=== PATIENT | male | born 1940 | race Caucasian/White ===

== ENCOUNTER 2021-03-25 19:18 | Observation (INO) | payer MEDICARE, OTHER ==
[2021-03-25] MEDS ORDERED: SODIUM CHLORIDE 0.9% 500 ML 500 ML IV STA (19:28)
[2021-03-25 19:36] LABS: Glucose,Whole Blood 72 mg/dL (75-99)
[2021-03-25 19:58] LABS: Basophils # (A) 0.1 k/uL (0-0.2); Basophils % (A) 1 %; Eosinophils # (A) 0.1 k/uL (0-0.7); Eosinophils % (A) 1 %; HCT 41.2 % (39.0-53.0); HGB 14.6 gm/dL (13.0-17.5); Lymphocytes # (A) 1.6 k/uL (1.0-4.8); Lymphocytes % (A) 16 %; MCH 33.1 pg (25.0-35.0); MCHC 35.3 g/dL (31.0-37.0); MCV 93.8 fL (80.0-100.0); Mean Platelet Volume 9.1; Monocytes # (A) 0.7 k/uL (0-1.0); Monocytes % (A) 7 %; Neutrophils # (A) 7.6 k/uL (1.3-7.7); Neutrophils % (A) 75 %; Platelet Count 163 k/uL (150-450); RBC 4.39 m/uL (4.30-5.90); RDW 13.2 % (11.5-15.5); WBC 10.1 k/uL (3.8-10.6)
[2021-03-25 20:14] LABS: Albumin 4.1 g/dL (3.5-5.0); Calcium 9.4 mg/dL (8.4-10.2); Magnesium 1.7 mg/dL (1.6-2.3); Potassium 3.6 mmol/L (3.5-5.1); Total Bilirubin 0.6 mg/dL (0.2-1.3)
[2021-03-25 20:18] LABS: Partial Thromboplastin Time 23.4 sec (22.0-30.0); Prothrombin Time 10.7 sec (9.0-12.0)
[2021-03-25] MEDS ORDERED: DEXTROSE 50% SYRINGE 50 ML IVP STA (20:31)
[2021-03-25 20:34] LABS: Glucose,Whole Blood 67 mg/dL (75-99)
--- NOTE | 2021-03-25 20:34 | ED ---
General Adult HPI - General Chief complaint: Altered Mental Status Stated complaint: AMS Source: patient, EMS Mode of arrival: EMS Limitations: no limitations - History of Present Illness Initial comments: 80-year-old male past history of coronary artery disease, diabetes, ulcerative colitis with colostomy presents emergency Department with reported altered mental status. EMS provided majority of the history. They state that the patient ate a small meal and then went into the bathroom to take his insulin. He did not come out of the bathroom as expected and therefore family went in to find him cool, pale and diaphoretic. They did check his glucose level and it was 71. Patient was fed a honeybun and EMS was called. They arrived to find the patient with a glucose of 160. He was much more awake and alert. Family is concerned that the patient took access of his insulin. Patient reports that he only took his scheduled 4 units. He also states that his glucose has fallen low previously. He denies any recent illnesses. States he felt well up until the event. Denies any recent medication changes. EMS transported the patient to the hospital and stated that he had multiple irregular rhythms noted on the EKG. Patient has arrived and placed on the monitoring specialist. He denies any chest pain or shortness of breath. No nausea or vomiting. Eating, drinking normally. No other alleviating, precipitating or modifying factors - Related Data Home Medications Medication Instructions Recorded Confirmed Aspirin EC [Ecotrin Low Dose] 81 mg PO DAILY 03/25/21 03/25/21 Folplex 2.2-25-0.5mg 1 tab PO DAILY 03/25/21 03/25/21 Insulin Aspart [NovoLOG Flexpen] 4 units SQ AC-BID 03/25/21 03/25/21 Insulin Glargine,Hum.rec.anlog 12 unit SQ DAILY 03/25/21 03/25/21 [Lantus Solostar Pen] Losartan Potassium 50 mg PO DAILY 03/25/21 03/25/21 Pantoprazole Sodium [Protonix] 20 mg PO DAILY 03/25/21 03/25/21 Allergies Allergy/AdvReac Type Severity Reaction Status Date / Time No Known Allergies Allergy Verified 03/25/21 20:16 Review of Systems ROS Statement: Those systems with pertinent positive or pertinent negative responses have been documented in the HPI. ROS Other: All systems not noted in ROS Statement are negative. Past Medical History Past Medical History: Coronary Artery Disease (CAD), Diabetes Mellitus, Hypertension, Memory Impairment, Myocardial Infarction (MS) History of Any Multi-Drug Resistant Organisms: None Reported Additional Past Surgical History / Comment(s): Colostomy, left knee amputation Past Psychological History: No Psychological Hx Reported Smoking Status: Former smoker Past Alcohol Use History: None Reported Past Drug Use History: None Reported General Exam Limitations: no limitations Course Vital Signs 03/25/21 03/25/21 19:28 20:20 Pulse Rate 61 61 Respiratory 16 18 Rate Blood Pressure 105/81 116/69 O2 Sat by Pulse 99 99 Oximetry EKG Findings - EKG Comments: EKG Findings:: EKG demonstrates sinus rhythm with first-degree block. Rate of 61. AK 222. QRS 158. QTC of 497. Right bundle branch block. No acute ST s egment elevations or depressions Medical Decision Making - Medical Decision Making Upon arrival the patient was placed into room 10. He is placed on continuous pulse ox and cardiac monitoring. Did obtain an Accu-Chek on the patient and it is noted be 72. He is given something to eat. Laboratory studies are conducted. Glucose is return at 30 on his CMP. Repeat Accu-Chek demonstrates that it has fallen to 67. Patient is given a half amp of dextrose and given additional food to eat. Remainder of his laboratory studies are reviewed and a chest x-rays performed. Due to patient's recurrent hypoglycemia did recommend admission to the hospital for which patient did agree to. Patient will remain on the monitoring specialist. Spoke with Isi from [facility] who agreed to admit the patient. Patient currently awaiting a bed on the floor - Lab Data Result diagrams: 03/25/21 19:54 03/25/21 19:54 Lab Results 03/25/21 03/25/21 03/25/21 Range/Units 19:24 19:54 19:54 WBC 10.1 (3.8-10.6) k/uL RBC 4.39 (4.30-5.90) m/uL Hgb 14.6 (13.0-17.5) gm/dL Hct 41.2 (39.0-53.0) % MCV 93.8 (80.0-100.0) fL MCH 33.1 (25.0-35.0) pg MCHC 35.3 (31.0-37.0) g/dL RDW 13.2 (11.5-15.5) % Plt Count 163 (150-450) k/uL MPV 9.1 Neutrophils % 75 % Lymphocytes % 16 % Monocytes % 7 % Eosinophils % 1 % Basophils % 1 % Neutrophils # 7.6 (1.3-7.7) k/uL Lymphocytes # 1.6 (1.0-4.8) k/uL Monocytes # 0.7 (0-1.0) k/uL Eosinophils # 0.1 (0-0.7) k/uL Basophils # 0.1 (0-0.2) k/uL PT 10.7 (9.0-12.0) sec INR 1.0 (<1.2) APTT 23.4 (22.0-30.0) sec Sodium (137-145) mmol/L Potassium (3.5-5.1) mmol/L Chloride (98-107) mmol/L Carbon Dioxide (22-30) mmol/L Anion Gap mmol/L BUN (9-20) mg/dL Creatinine (0.66-1.25) mg/dL Est GFR (CKD-EPI)AfAm (>60 ml/min/1.73 sqM) Est GFR (CKD-EPI)NonAf (>60 ml/min/1.73 sqM) Glucose (74-99) mg/dL POC Glucose (mg/dL) 72 L (75-99) mg/dL POC [facility] [employer] Teacher ID Regina Diez Lactic Ac Sepsis Rflx Plasma Lactic Acid Kali (0.7-2.0) mmol/L Calcium (8.4-10.2) mg/dL Magnesium (1.6-2.3) mg/dL Total Bilirubin (0.2-1.3) mg/dL AST (17-59) U/L ALT (4-49) U/L Alkaline Phosphatase (38-126) U/L Troponin I (0.000-0.034) ng/mL Total Protein (6.3-8.2) g/dL Albumin (3.5-5.0) g/dL Coronavirus (PCR) (Not Detectd) 03/25/21 03/25/21 03/25/21 Range/Units 19:54 19:54 19:54 WBC (3.8-10.6) k/uL RBC (4.30-5.90) m/uL Hgb (13.0-17.5) gm/dL Hct (39.0-53.0) % MCV (80.0-100.0) fL MCH (25.0-35.0) pg MCHC (31.0-37.0) g/dL RDW (11.5-15.5) % Plt Count (150-450) k/uL MPV Neutrophils % % Lymphocytes % % Monocytes % % Eosinophils % % Basophils % % Neutrophils # (1.3-7.7) k/uL Lymphocytes # (1.0-4.8) k/uL Monocytes # (0-1.0) k/uL Eosinophils # (0-0.7) k/uL Basophils # (0-0.2) k/uL PT (9.0-12.0) sec INR (<1.2) APTT (22.0-30.0) sec Sodium 134 L (137-145) mmol/L Potassium 3.6 (3.5-5.1) mmol/L Chloride 104 (98-107) mmol/L Carbon Dioxide 20 L (22-30) mmol/L Anion Gap 10 mmol/L BUN 25 H (9-20) mg/dL Creatinine 1.10 (0.66-1.25) mg/dL Est GFR (CKD-EPI)AfAm 73 (>60 ml/min/1.73 sqM) Est GFR (CKD-EPI)NonAf 63 (>60 ml/min/1.73 sqM) Glucose 30 L* (74-99) mg/dL POC Glucose (mg/dL) (75-99) mg/dL POC [facility] [employer] [facility] ID Lactic Ac Sepsis Rflx Plasma Lactic Acid Kali 2.1 H* (0.7-2.0) mmol/L Calcium 9.4 (8.4-10.2) mg/dL Magnesium 1.7 (1.6-2.3) mg/dL Total Bilirubin 0.6 (0.2-1.3) mg/dL AST 26 (17-59) U/L ALT 15 (4-49) U/L Alkaline Phosphatase 75 (38-126) U/L Troponin I 0.032 (0.000-0.034) ng/mL Total Protein 7.0 (6.3-8.2) g/dL Albumin 4.1 (3.5-5.0) g/dL Coronavirus (PCR) (Not Detectd) 03/25/21 03/25/21 03/25/21 Range/Units 20:22 20:25 20:58 WBC (3.8-10.6) k/uL RBC (4.30-5.90) m/uL Hgb (13.0-17.5) gm/dL Hct (39.0-53.0) % MCV (80.0-100.0) fL MCH (25.0-35.0) pg MCHC (31.0-37.0) g/dL RDW (11.5-15.5) % Plt Count (150-450) k/uL MPV Neutrophils % % Lymphocytes % % Monocytes % % Eosinophils % % Basophils % % Neutrophils # (1.3-7.7) k/uL Lymphocytes # (1.0-4.8) k/uL Monocytes # (0-1.0) k/uL Eosinophils # (0-0.7) k/uL Basophils # (0-0.2) k/uL PT (9.0-12.0) sec INR (<1.2) APTT (22.0-30.0) sec Sodium (137-145) mmol/L Potassium (3.5-5.1) mmol/L Chloride (98-107) mmol/L Carbon Dioxide (22-30) mmol/L Anion Gap mmol/L BUN (9-20) mg/dL Creatinine (0.66-1.25) mg/dL Est GFR (CKD-EPI)AfAm (>60 ml/min/1.73 sqM) Est GFR (CKD-EPI)NonAf (>60 ml/min/1.73 sqM) Glucose (74-99) mg/dL POC Glucose (mg/dL) 67 L 120 H (75-99) mg/dL POC [facility] [employer] ID Kimi Santos Lactic Ac Sepsis Rflx Y Plasma Lactic Acid Kali (0.7-2.0) mmol/L Calcium (8.4-10.2) mg/dL Magnesium (1.6-2.3) mg/dL Total Bilirubin (0.2-1.3) mg/dL AST (17-59) U/L ALT (4-49) U/L Alkaline Phosphatase (38-126) U/L Troponin I (0.000-0.034) ng/mL Total Protein (6.3-8.2) g/dL Albumin (3.5-5.0) g/dL Coronavirus (PCR) (Not Detectd) 03/25/21 03/25/21 Range/Units 21:22 21:25 WBC (3.8-10.6) k/uL RBC (4.30-5.90) m/uL Hgb (13.0-17.5) gm/dL Hct (39.0-53.0) % MCV (80.0-100.0) fL MCH (25.0-35.0) pg MCHC (31.0-37.0) g/dL RDW (11.5-15.5) % Plt Count (150-450) k/uL MPV Neutrophils % % Lymphocytes % % Monocytes % % Eosinophils % % Basophils % % Neutrophils # (1.3-7.7) k/uL Lymphocytes # (1.0-4.8) k/uL Monocytes # (0-1.0) k/uL Eosinophils # (0-0.7) k/uL Basophils # (0-0.2) k/uL PT (9.0-12.0) sec INR (<1.2) APTT (22.0-30.0) sec Sodium (137-145) mmol/L Potassium (3.5-5.1) mmol/L Chloride (98-107) mmol/L Carbon Dioxide (22-30) mmol/L Anion Gap mmol/L BUN (9-20) mg/dL Creatinine (0.66-1.25) mg/dL Est GFR (CKD-EPI)AfAm (>60 ml/min/1.73 sqM) Est GFR (CKD-EPI)NonAf (>60 ml/min/1.73 sqM) Glucose (74-99) mg/dL POC Glucose (mg/dL) 121 H (75-99) mg/dL POC [facility] [employer] Teacher ID Kimi Santos Lactic Ac Sepsis Rflx Plasma Lactic Acid Kali (0.7-2.0) mmol/L Calcium (8.4-10.2) mg/dL Magnesium (1.6-2.3) mg/dL Total Bilirubin (0.2-1.3) mg/dL AST (17-59) U/L ALT (4-49) U/L Alkaline Phosphatase (38-126) U/L Troponin I (0.000-0.034) ng/mL Total Protein (6.3-8.2) g/dL Albumin (3.5-5.0) g/dL Coronavirus (PCR) Not Detected (Not Detectd) Disposition Clinical Impression: Acute encephalopathy, Hypoglycemia Disposition: ADMITTED IP TO THIS [facility] Condition: Stable Is patient prescribed a controlled substance at d/c from ED?: No Decision to Admit Reason: Admit from EC Decision Date: 03/25/21 Decision Time: 21:28
--- NOTE | 2021-03-25 20:49 | XR ---
EXAMINATION: XR chest 2V DATE AND TIME: 03/25/2021 7:57 PM CLINICAL INDICATION: PHH; Weakness TECHNIQUE: AP and lateral radiographs COMPARISON: None FINDINGS: Sternal sutures and mediastinal clips noted. EKG leads. The lungs are clear. The pleural spaces are negative. The cardiac silhouette appears mildly enlarged, although this is an AP radiograph. The remainder of t he mediastinal silhouette is unremarkable. The skeletal structures and soft tissues are negative for acute findings. IMPRESSION: No acute radiographic process.
[2021-03-25 21:09] LABS: Glucose,Whole Blood 120 mg/dL (75-99)
[2021-03-25] MEDS ORDERED: NALOXONE 0.4 MG/ML 1 ML VIAL IV PRN (21:28)
[2021-03-25 21:47] LABS: Glucose,Whole Blood 121 mg/dL (75-99)
[2021-03-25 23:34] LABS: Glucose,Whole Blood 124 mg/dL (75-99)
[2021-03-26 01:52] LABS: Glucose,Whole Blood 130 mg/dL (75-99)
[2021-03-26 04:07] LABS: Appearance,Urine Clear (Clear); Bilirubin,Urine Negative (Negative); Blood,Urine Negative (Negative); Color,Urine Yellow; Glucose,Urine (UA) Negative (Negative); Ketones,Urine Negative (Negative); Leukocyte Esterase,Urine Negative (Negative); Nitrite,Urine Negative (Negative); Protein,Urine Negative (Negative); Specific Gravity,Urine 1.012 (1.001-1.035); Urobilinogen,Urine <2.0 mg/dL (<2.0)
[2021-03-26 06:14] LABS: Basophils % (A) 1 %; Eosinophils # (A) 0.1 k/uL (0-0.7); Eosinophils % (A) 2 %; HCT 40.8 % (39.0-53.0); HGB 13.6 gm/dL (13.0-17.5); Lymphocytes # (A) 1.4 k/uL (1.0-4.8); Lymphocytes % (A) 29 %; MCH 32.2 pg (25.0-35.0); MCHC 33.4 g/dL (31.0-37.0); MCV 96.5 fL (80.0-100.0); Mean Platelet Volume 11.1; Monocytes # (A) 0.4 k/uL (0-1.0); Monocytes % (A) 7 %; Neutrophils # (A) 2.9 k/uL (1.3-7.7); Neutrophils % (A) 59 %; Platelet Count 136 k/uL (150-450); RBC 4.22 m/uL (4.30-5.90); RDW 12.7 % (11.5-15.5); WBC 4.9 k/uL (3.8-10.6)
[2021-03-26 06:28] LABS: African American GFR (CKD) >90 (>60 ml/min/1.73 sqM); Anion Gap 9 mmol/L; Blood Urea Nitrogen 22 mg/dL (9-20); Calcium 9.2 mg/dL (8.4-10.2); Carbon Dioxide 20 mmol/L (22-30); Chloride 104 mmol/L (98-107); Glucose 163 mg/dL (74-99); Non-African American GFR(CKD) 82 (>60 ml/min/1.73 sqM); Potassium 4.4 mmol/L (3.5-5.1); Sodium 133 mmol/L (137-145)
[2021-03-26 07:26] LABS: Glucose,Whole Blood 127 mg/dL (75-99)
[2021-03-26] MEDS: PANTOPRAZOLE 40 MG TABLET PO SCH (08:24)
[2021-03-26] MEDS: ASPIRIN 81 MG PO SCH (08:24)
[2021-03-26 09:50] LABS: Glucose,Whole Blood 205 mg/dL (75-99)
[2021-03-26 11:46] LABS: Glucose,Whole Blood 216 mg/dL (75-99)
--- NOTE | 2021-03-26 16:28 | P.HPIM ---
History of Present Illness H&P Date: 03/26/21 Chief Complaint: Altered mental status Patient is a 80-year-old male with a known history of dementia, coronary artery disease with history of stent placement, diabetes type 2 insulin-dependent, hearing disorder/deafness, hypertension, memory impairment and previous history of smoking was brought to the hospital by EMS due to altered mental status. Patient is awake alert and oriented 1-2 but could not provide much history due to memory issues. Patient's daughter is at bedside. Apparently patient went to the bathroom yesterday to previous insulin dose before the meal and could not join the family for meals. Family went into the bathroom to check the patient and was found to be very pale and sweaty. Blood sugars checked at the time was 70. Patient became more awake and conscious, was able to complete his male. Patient went to bed to sleep. When the family check him again he was found to be sweaty and blood sugar checked at the time was 130. EMS was called due to altered mental status. Patient usually takes Lantus 12 units daily and also NovoLog 4 units with lunch and dinner. Patient was started on preprandial insulin about 6 months ago. On admission blood pressure was 105/81 pulse is 61 dizziness and 16 pulse ox 98% on room air. Chest x-ray showed no acute cardio pulmonary process. Laboratory data showed RBC 4.9 hemoglobin 13.6 and platelets 136 Sodium 133 potassium 4.4 chloride 104 bicarb is 20 BUN 22 and creatinine 0.86 and calcium 9.2 Review of Systems Constitutional: Patient denies any fever or chills . No generalized weakness or weight loss. Abdomen: Patient denied nausea vomiting and diarrhea and abdominal pain. Cardiovascular: Patient denies any chest pain or short of breath no pa lpitations. Respiratory: patient denied any cough is from production. No shortness of breath Neurologic: Patient denied any numbness or tingling headache. Musculoskeletal: Patient denies any complaints of joint swelling or deformity. Skin: Negative Psychiatric: Negative Endocrine: No heat or cold intolerance. No recent weight gain. Genitourinary: No dysuria or hematuria. All other 14 point ROS negative except the above Past Medical History Past Medical History: Coronary Artery Disease (CAD), Dementia, Diabetes Mellitus, Eye Disorder, Hearing Disorder / Deafness, Hyperlipidemia, Hypertension, Memory Impairment, Myocardial Infarction (NE), Renal Disease Additional Past Medical History / Comment(s): ulcerative colitis, BPH Last Myocardial Infarction Date:: 2015 History of Any Multi-Drug Resistant Organisms: None Reported Past Surgical History: Bowel Resection, Heart Catheterization, Heart Catheterization With Stent Additional Past Surgical History / Comment(s): Colostomy, left knee replacement, back surgery Date of Last Stent Placement:: 2015 Past Psychological History: No Psychological Hx Reported Smoking Status: Former smoker Past Alcohol Use History: None Reported Past Drug Use History: None Reported Medications and Allergies Home Medications Medication Instructions Recorded Confirmed Type Aspirin EC [Ecotrin Low Dose] 81 mg PO DAILY 03/25/21 03/25/21 History Folplex 2.2-25-0.5mg 1 tab PO DAILY 03/25/21 03/25/21 History Insulin Aspart [NovoLOG Flexpen] 4 units SQ AC-BID 03/25/21 03/25/21 History Insulin Glargine,Hum.rec.anlog 12 unit SQ DAILY 03/25/21 03/25/21 History [Lantus Solostar Pen] Losartan Potassium 50 mg PO DAILY 03/25/21 03/25/21 History Pantoprazole Sodium [Protonix] 20 mg PO DAILY 03/25/21 03/25/21 History Allergies Allergy/AdvReac Type Severity Reaction Status Date / Time No Known Allergies Allergy Verified 03/25/21 20:16 Physical Exam Vitals: Vital Signs Temp Pulse Pulse Resp BP BP Pulse Ox 03/26/21 07:25 97.6 F 75 16 119/77 97 03/26/21 02:45 97.4 F L 69 16 117/73 96 03/26/21 01:00 97.4 F L 03/25/21 20:20 61 18 116/69 99 03/25/21 19:28 61 16 105/81 99 Intake and Output 03/25/21 03/26/21 03/26/21 22:59 06:59 14:59 Intake Total 118 Output Total 650 300 Balance -650 -182 Intake: Oral 118 Output: Urine 450 300 Stool 200 Other: Voiding Method Urinal Urinal # Voids 1 # Bowel Movements 1 Weight 104.326 kg 104.326 kg PHYSICAL EXAMINATION: Patient is lying in the bed comfortably, no acute distress, awake alert and oriented.. HEENT: Normocephalic. Neck is supple. Pupils reactive. Nostrils clear. Oral cavity is moist. Neck reveals no JVD, carotid bruits, or thyromegaly. CHEST EXAMINATION: Trachea is central. Symmetrical expansion. Lung willett clear to auscultation and percussion. CARDIAC: Normal S1, S2 with no gallops. No murmurs ABDOMEN: Soft. Bowel sounds normal. No organomegaly. No abdominal bruits. Extremities: reveal no edema. No clubbing or cyanosis Neurologically awake, alert, oriented 2 with well-coordinated movements. Dementia. No focal deficits noted Skin: No rash or skin lesions. Psychiatric: Coperative. Nonsuicidal Musculoskeletal: No joint swelling or deformity. Normal range of motion. Results CBC & Chem 7: 03/26/21 04:59 03/26/21 04:59 Labs: Abnormal Lab Results - Last 24 Hours (Table) 03/25/21 03/25/21 03/25/21 Range/Units 19:24 19:54 19:54 RBC (4.30-5.90) m/uL Plt Count (150-450) k/uL Sodium 134 L (137-145) mmol/L Carbon Dioxide 20 L (22-30) mmol/L BUN 25 H (9-20) mg/dL Glucose 30 L* (74-99) mg/dL POC Glucose (mg/dL) 72 L (75-99) mg/dL Plasma Lactic Acid Kali 2.1 H* (0.7-2.0) mmol/L 03/25/21 03/25/21 03/25/21 Range/Units 20:25 20:58 21:22 RBC (4.30-5.90) m/uL Plt Count (150-450) k/uL Sodium (137-145) mmol/L Carbon Dioxide (22-30) mmol/L BUN (9-20) mg/dL Glucose (74-99) mg/dL POC Glucose (mg/dL) 67 L 120 H 121 H (75-99) mg/dL Plasma Lactic Acid Kali (0.7-2.0) mmol/L 03/25/21 03/26/21 03/26/21 Range/Units 23:32 01:50 04:59 RBC 4.22 L (4.30-5.90) m/uL Plt Count 136 L (150-450) k/uL Sodium (137-145) mmol/L Carbon Dioxide (22-30) mmol/L BUN (9-20) mg/dL Glucose (74-99) mg/dL POC Glucose (mg/dL) 124 H 130 H (75-99) mg/dL Plasma Lactic Acid Kali (0.7-2.0) mmol/L 03/26/21 03/26/21 03/26/21 Range/Units 04:59 07:25 09:49 RBC (4.30-5.90) m/uL Plt Count (150-450) k/uL Sodium 133 L (137-145) mmol/L Carbon Dioxide 20 L (22-30) mmol/L BUN 22 H (9-20) mg/dL Glucose 163 H (74-99) mg/dL POC Glucose (mg/dL) 127 H 205 H (75-99) mg/dL Plasma Lactic Acid Kali (0.7-2.0) mmol/L 03/26/21 Range/Units 11:44 RBC (4.30-5.90) m/uL Plt Count (150-450) k/uL Sodium (137-145) mmol/L Carbon Dioxide (22-30) mmol/L BUN (9-20) mg/dL Glucose (74-99) mg/dL POC Glucose (mg/dL) 216 H (75-99) mg/dL Plasma Lactic Acid Kali (0.7-2.0) mmol/L Thrombosis Risk Factor Assmnt - DVT/VTE Prophylaxis DVT/VTE Prophylaxis: Pharmacologic Prophylaxis ordered - Choose All That Apply Any of the Below Risk Factors Present?: Yes Each Factor Represents 1 point: Acute NE, Obesity (BMI >25) Each Risk Factor Represents 3 Points: Age 75 years or older Other congenital or acquired thrombophilia - If yes, enter type in comment: No Thrombosis Risk Factor Assessment Total Risk Factor Score: 5 Thrombosis Risk Factor Assessment Level: High Risk Assessment and Plan Assessment: Altered mental status possible metabolic encephalopathy due to hypoglycemia. Hyperglycemia due to insulin dose Diabetes type 2 insulin-dependent Dementia Coronary artery disease with history of stent placement Left knee amputation History of NE Previous to smoking DVT prophylaxis with heparin subcu And Plan: Patient will be continued on IV hydration and insulin is on hold currently. Encourage oral intake. Patient will be started back on home medications. Blood sugar is improved to 200 today. We'll give long-acting insulin and continue his insulin sliding scale. Adjust the dose of preprandial insulin as needed. Discussed with his daughter at bedside in detail. Continue to follow closely. Time with Patient: Greater than 30
[2021-03-26 17:17] LABS: Glucose,Whole Blood 333 mg/dL (75-99)
[2021-03-26] MEDS: INSULIN ASPART (NovoLOG) 100 UNIT/ML VIAL SQ SCH ×2 (17:38→20:28)
[2021-03-26] MEDS: INSULIN DETEMIR (LEVEMIR) 100 UNIT/ML SYR SQ SCH (17:38)
[2021-03-26 20:06] LABS: Glucose,Whole Blood 147 mg/dL (75-99)
[2021-03-26] MEDS: HEPARIN SODIUM,PORCINE/PF 5,000 UNIT/0.5 ML SYRINGE SQ SCH (20:29)
[2021-03-26 22:22] LABS: Glucose,Whole Blood 75 mg/dL (75-99)
[2021-03-27 01:56] LABS: Glucose,Whole Blood 126 mg/dL (75-99)
[2021-03-27] MEDS ORDERED: INSULIN DETEMIR (LEVEMIR) 100 UNIT/ML SYR SQ SCH (07:00)
[2021-03-27 07:30] LABS: Glucose,Whole Blood 75 mg/dL (75-99)
[2021-03-27] MEDS: ASPIRIN 81 MG PO SCH (08:23)
[2021-03-27] MEDS: INSULIN DETEMIR (LEVEMIR) 100 UNIT/ML SYR SQ SCH (08:23)
[2021-03-27] MEDS: PANTOPRAZOLE 40 MG TABLET PO SCH (08:23)
[2021-03-27] MEDS: HEPARIN SODIUM,PORCINE/PF 5,000 UNIT/0.5 ML SYRINGE SQ SCH (08:23)
[2021-03-27] MEDS: INSULIN ASPART (NovoLOG) 100 UNIT/ML VIAL SQ SCH ×2 (08:27→13:21)
[2021-03-27 09:02] VITALS: TEMP 97.5
[2021-03-27 12:03] LABS: Glucose,Whole Blood 271 mg/dL (75-99)
[2021-03-27 14:29] LABS: Glucose,Whole Blood 214 mg/dL (75-99)
[2021-03-27 14:59] VITALS: BP 128/78; PULSE 71; RESP 18
== END 2021-03-27 15:38 | disposition home or self-care (01) ==
LOC: SUPCPDRO 19:18 → EC 19:18 → 6NMEDSUR 21:28
PROVIDERS: ADMIT Hospitalist; ATTEND Hospitalist
DX: R41.82 Altered mental status, unspecified (principal); E11.649 Type 2 diabetes mellitus with hypoglycemia without coma; E11.65 Type 2 diabetes mellitus with hyperglycemia; F03.90 Unspecified dementia, unspecified severity, without behavioral disturbance, psychotic disturbance, mood disturbance, and anxiety; Z20.822 Contact with and (suspected) exposure to COVID-19; I25.10 Atherosclerotic heart disease of native coronary artery without angina pectoris; I10 Essential (primary) hypertension; E78.5 Hyperlipidemia, unspecified; I25.2 Old myocardial infarction; K51.90 Ulcerative colitis, unspecified, without complications; N40.0 Benign prostatic hyperplasia without lower urinary tract symptoms; E66.9 Obesity, unspecified; Z68.33 Body mass index [BMI] 33.0-33.9, adult; H91.90 Unspecified hearing loss, unspecified ear; H57.9 Unspecified disorder of eye and adnexa; N28.9 Disorder of kidney and ureter, unspecified; Z93.3 Colostomy status; Z79.4 Long term (current) use of insulin; Z79.82 Long term (current) use of aspirin; Z79.899 Other long term (current) drug therapy; Z89.612 Acquired absence of left leg above knee; Z96.652 Presence of left artificial knee joint; Z87.891 Personal history of nicotine dependence; Z95.5 Presence of coronary angioplasty implant and graft
CPT/HCPCS: 99285; 96372 ×2; 36415; 93005; 80053; 80048; 83605; 83735; 84484; 85025 ×2; 85610; 85730; 81003; 87635; 71046; G0378 ×3; J1644 ×2